=== PATIENT | female | born 1990 | race Caucasian/White ===

== ENCOUNTER 2019-04-03 13:54 | Emergency (ER) | payer OTHER ==
[~2019-04-03] VITALS: Ht 170.2 cm; Wt 86.2 kg
[2019-04-03] MEDS ORDERED: GABA-534 PO (14:04)
[2019-04-03] MEDS ORDERED: IBUPROFEN 400 MG TABLET PO ONE (14:15)
[2019-04-03] MEDS ORDERED: ACETAMINOPHEN ES 500 MG TABLET PO ONE (14:15)
[2019-04-03] MEDS ORDERED: IBUPROFEN 400 MG TABLET ONE (14:16)
[2019-04-03] MEDS ORDERED: ACETAMINOPHEN ES 500 MG TABLET ONE (14:16)
--- NOTE | 2019-04-03 14:55 | NUR ---
Patient discharged to home in stable conditon. Written and verbal after care instructions given. Patient verbalizes understanding of instructions.
== END 2019-04-03 14:56 | disposition home or self-care (01) ==
LOC: ER 13:56
DX: S06.0X0A Concussion without loss of consciousness, initial encounter (principal); Z79.899 Other long term (current) drug therapy; W10.9XXA Fall (on) (from) unspecified stairs and steps, initial encounter; Y93.89 Activity, other specified; Y92.89 Other specified places as the place of occurrence of the external cause; Y99.8 Other external cause status
CPT/HCPCS: 70450; A4663; A9150